=== PATIENT | female | born 1950 | race Caucasian/White ===

== ENCOUNTER 2024-11-10 19:28 | Emergency (ER) | payer MEDICARE | END 2024-11-10 22:10 | disposition home or self-care (01) | LOC: CSHERS 19:28 | DX: L25.1 Unspecified contact dermatitis due to drugs in contact with skin (principal); T49.0X5A Adverse effect of local antifungal, anti-infective and anti-inflammatory drugs, initial encounter; I10 Essential (primary) hypertension; F17.210 Nicotine dependence, cigarettes, uncomplicated | CPT/HCPCS: 99282 ==